=== PATIENT | male | born 1945 | race Caucasian/White ===

== ENCOUNTER 2021-11-14 07:34 | Inpatient (IN) | payer MEDICARE ==
[~2021-11-14] VITALS: Ht 177.8 cm; Wt 75.3 kg
--- NOTE | 2021-11-14 07:44 | NUR ---
To ER bed 1, c/o LLQ pain had hernia surgery yesterday 08/16 pain scale, aaox3, breathing even and non labored, connected to monitor, awaiting md estrada
--- NOTE | 2021-11-14 07:45 | NUR ---
DR HERRON AT BEDSIDE
[2021-11-14 08:06] LABS: BASOPHILS % (AUTO) 0.3 % (0.0-2.0); EOSINOPHILS % (AUTO) 0.4 % (0.0-6.0); HEMATOCRIT 44 % (39-51); HEMOGLOBIN 14.5 g/dL (13.5-17.5); LYMPHOCYTES # (AUTO) 0.7 K/uL (0.8-4.8); LYMPHOCYTES % (AUTO) 6.7 % (20.0-44.0); MEAN CORPUSCULAR HGB CONC 33 g/dl (31.0-36.0); MEAN CORPUSCULAR VOLUME 100 fL (80-96); MONOCYTES # (AUTO) 0.7 K/uL (0.1-1.30); MONOCYTES % (AUTO) 6.6 % (2.0-12.0); PLATELET COUNT (AUTO) 168 K/uL (150-450); RED BLOOD CELL COUNT(AUTO) 4.38 MIL/uL (4.5-6.0); WHITE BLOOD COUNT (AUTO) 10.4 K/uL (4.3-11.0)
[2021-11-14 08:19] LABS: CALCIUM, SERUM 8.9 mg/dL (8.5-10.1); POTASSIUM 4.3 mmol/L (3.5-5.1)
--- NOTE | 2021-11-14 08:22 | NUR ---
ABDOMINE PAIN 4/10
[2021-11-14 08:25] LABS: ALBUMIN 3.5 g/dL (3.4-5.0); BILIRUBIN,DIRECT 0.2 mg/dL (0.0-0.2); BILIRUBIN,TOTAL 1.1 mg/dL (0.2-1.0); TOTAL PROTEIN, SERUM 6.8 g/dL (6.4-8.2)
[2021-11-14] MEDS ORDERED: IV NS 0.9% 250 ML IV ONE (08:26)
[2021-11-14] MEDS ORDERED: IOHEXOL-300 100 ML VIAL IV ONE (08:26)
--- NOTE | 2021-11-14 09:19 | NUR ---
URINE COLLECTED AND SENT TO LAB
[2021-11-14 09:35] LABS: BILIRUBIN,URINE NEGATIVE (NEGATIVE); COLOR,URINE YELLOW (YELLOW); LEUKOCYTE ESTERASE ,URINE NEGATIVE (NEGATIVE); NITRITE, URINE NEGATIVE (NEGATIVE); PROTEIN,URINE NEGATIVE (NEGATIVE); UGLUCOSE NEGATIVE (NEGATIVE); UROBILINOGEN,URINE 0.2 EU/dL (0.2)
--- NOTE | 2021-11-14 09:43 | NUR ---
CALLED AND LEFT A VOICEMAIL TO DR. JENNIFER SARMIENTO. WAITING FOR RESPONSE.
--- NOTE | 2021-11-14 09:51 | NUR ---
PAGED DR. YOUNG PENNINGTON FOR A CONSULT. WAITING FOR RESPONSE.
--- NOTE | 2021-11-14 09:54 | NUR ---
DR. PENNINGTON ON THE PHONE WITH DR. HERRON.
[2021-11-14] MEDS ORDERED: PANT40TA49 PO (11:11)
[2021-11-14] MEDS ORDERED: TAMS-12 PO (11:11)
[2021-11-14] MEDS ORDERED: HYDR-3972 PO (11:11)
[2021-11-14] MEDS ORDERED: ROSU20TA32 PO (11:11)
[2021-11-14] MEDS ORDERED: LORA-258 PO (11:11)
--- NOTE | 2021-11-14 11:16 | NUR ---
RADIOLOGY REPORT STILL NOT IN. CALLED RADIOLOGY FOR A READ.
[2021-11-14] MEDS ORDERED: ONDANSETRON HCL/PF 4 MG/2 ML VIAL ONE (12:23)
[2021-11-14] MEDS ORDERED: MORPHINE SULFATE INJ 4 MG/ML DISP.SYRIN ONE (12:23)
--- NOTE | 2021-11-14 12:26 | NUR ---
CALLED ENMA SUTTON PAGERanulfo
[2021-11-14] MEDS ORDERED: MORPHINE SULFATE INJ 2 MG/ML DISP.SYRIN IV ONE (12:30)
[2021-11-14] MEDS ORDERED: ONDANSETRON HCL/PF - ER 4 MG/2 ML VIAL IV ONE (12:30)
--- NOTE | 2021-11-14 12:42 | NUR ---
MD TO MD IN PROGRESS.
--- NOTE | 2021-11-14 15:06 | NUR ---
REPORT GIVEN TO HIRAL RODRIGUEZ FOR NATALIO
[2021-11-14] MEDS ORDERED: MAG HYDROX/AL HYDROX/SIMETH 30 ML UDC PO PRN (15:30)
[2021-11-14] MEDS ORDERED: ACETAMINOPHEN 325 MG TABLET PO PRN (15:30)
[2021-11-14] MEDS ORDERED: MAGNESIUM HYDROXIDE 30 ML UDC PO PRN (15:30)
[2021-11-14] MEDS ORDERED: ONDANSETRON HCL/PF 4 MG/2 ML VIAL IVP PRN (15:30)
[2021-11-14] MEDS ORDERED: ZOLPIDEM TARTRATE 5 MG TABLET PO PRN (15:30)
[2021-11-14] MEDS ORDERED: MORPHINE SULFATE INJ 2 MG/ML DISP.SYRIN IV PRN (15:30)
[2021-11-14] MEDS ORDERED: Z GUARD REMEDY 4 OZ OINT TP PRN (15:30)
[2021-11-14 15:45] VITALS: BP 116/84
[2021-11-14 17:23] LABS: HEMOGLOBIN 15.1 g/dL (13.5-17.5)
--- NOTE | 2021-11-14 19:16 | NUR ---
RECEIVED PT FROM ER. ARRIVED TO ROOM VIA GURNEY. PT ORIENTED TO ROOM AND USE OF CALL LIGHT. POLICIES AND PROCEDURES EXPLAINED. PT VERBALIZED UNDERSTANDING. PT A/O X4. PT HAS IV ON LAC G#18. ASSESSMENT PERFORMED. SKIN INTACT. V/S: BP 116/84, WI 89, RR 20, T 97.8, SPO2 95%. WILL ENDORSE TO NEXT NURSE ON DUTY FOR CONTINUITY OF CARE.
--- NOTE | 2021-11-14 19:40 | NUR ---
MS RN OPENING NOTE PATIENT AWAKE IN BED, ALERT/ORIENTED X 4, PT ABLE TO MAKE NEEDS KNOWN. PT STABLE ON RA, NO S/S OF DISTRESS OR SOB NOTED, BREATHING EVEN AND UNLABORED. IV ACCESS ON LAC #18G INTACT AND SALINE LOCKED. PATIENT AMBULATORY & STEADY TO BATHROOM. SAFETY MEASURES IN PLACE: CALL LIGHT & TABLE WITHIN REACH, SIDE RAILS UP X 2, BED LOCKED IN LOWEST POSITION. WILL CONTINUE TO MONITOR PATIENT
[2021-11-14 20:00] VITALS: BP 102/65
[2021-11-14] MEDS: HYDROCODONE/APAP 10/325MG TABLET PO PRN (21:32)
[2021-11-14] MEDS ORDERED: TAMSULOSIN 0.4 MG CAP.SR.24H PO SCH (22:00)
[2021-11-14] MEDS ORDERED: ATORVASTATIN 40 MG TABLET PO SCH (22:00)
--- NOTE | 2021-11-15 00:22 | NUR ---
MS RN NOTE DR. PENNINGTON SAW PATIENT AT BEDSIDE, PER MD NO SURGICAL INTERVENTION AT THIS TIME. OKAY TO D/C IN AM
[2021-11-15 06:12] LABS: BASOPHILS % (AUTO) 0.2 % (0.0-2.0); EOSINOPHILS % (AUTO) 0.7 % (0.0-6.0); HEMATOCRIT 38 % (39-51); HEMOGLOBIN 13.1 g/dL (13.5-17.5); LYMPHOCYTES # (AUTO) 0.9 K/uL (0.8-4.8); LYMPHOCYTES % (AUTO) 10.2 % (20.0-44.0); MEAN CORPUSCULAR HGB CONC 34 g/dl (31.0-36.0); MEAN CORPUSCULAR VOLUME 100 fL (80-96); MONOCYTES # (AUTO) 1.1 K/uL (0.1-1.30); MONOCYTES % (AUTO) 12.8 % (2.0-12.0); NEUTROPHILS # (AUTO) 6.4 K/uL (1.8-8.9); NEUTROPHILS % (AUTO) 76.1 % (43.0-81.0); PLATELET COUNT (AUTO) 159 K/uL (150-450); RED BLOOD CELL COUNT(AUTO) 3.85 MIL/uL (4.5-6.0); WHITE BLOOD COUNT (AUTO) 8.4 K/uL (4.3-11.0)
--- NOTE | 2021-11-15 06:39 | NUR ---
MS RN CLOSING NOTE PATIENT SLEEPING IN BED, EASILY AWAKENED, ALERT/ORIENTED X 4, PT ABLE TO MAKE NEEDS KNOWN. PT STABLE ON RA, NO S/S OF DISTRESS OR SOB NOTED, BREATHING EVEN AND UNLABORED. MEDICATIONS GIVEN ORDERED, PT NEEDS MET THROUGHOUT SHIFT. PATIENT AMBULATORY & STEADY TO BATHROOM. SAFETY MEASURES IN PLACE: CALL LIGHT & TABLE WITHIN REACH, SIDE RAILS UP X 2, BED LOCKED IN LOWEST POSITION. WILL ENDORSE TO DAY SHIFT NURSE FOR CONTINUITY OF CARE
[2021-11-15 06:44] LABS: CALCIUM, SERUM 8.5 mg/dL (8.5-10.1); CREATININE 0.9 mg/dL (0.6-1.3); MAGNESIUM 2.3 mg/dL (1.8-2.4); PHOSPHORUS 3.1 mg/dL (2.5-4.9)
--- NOTE | 2021-11-15 07:30 | NUR ---
RN OPENING NOTES RECEIVED PATIENT IN BED. A/O X4. ON RA, NO S/SX OF DISTRESS OR SOB NOTED, BREATHING EVEN AND UNLABORED. NO COMPLAINT OF PAIN AT THIS TIME. ABDOMINAL DRESSING INTACT. SAFETY PRECAUTIONS IN PLACE. WILL CONTINUE TO MONITOR PATIENT.
[2021-11-15 08:00] VITALS: BP 112/64
[2021-11-15] MEDS ORDERED: LORAZEPAM 0.5 MG TABLET PO SCH (09:00)
[2021-11-15] MEDS ORDERED: PANTOPRAZOLE 40 MG TABLET.DR PO SCH (09:00)
[2021-11-15] MEDS: HYDROCODONE/APAP 10/325MG TABLET PO PRN (09:16)
--- NOTE | 2021-11-15 16:20 | NUR ---
UNDERGRADUATE ADVISOR NOTES PATIENT MEDICALLY STABLE FOR DISCHARGE. VSS. DISCHARGE INSTRUCTIONS PROVIDED AND PATIENT ABLE TO VERBALIZE UNDERSTANDING. EXIT CARE PACKET PROVIDED. IV ACCESS REMOVED AND ID BAND REMOVED. ALL BELONGINGS ACCOUNTED FOR AND DOCUMENTS SIGNED. PATIENT LEFT HOSPITAL IN PRIVATE CAR ACCOMPANIED BY GIRLFRIEND.
== END 2021-11-15 16:30 | disposition home or self-care (01) | DRG 920 ==
LOC: ER 07:44 → MED 15:12
PROVIDERS: ADMIT Student in an Organized Health Care Education/Training Program; ATTEND Student in an Organized Health Care Education/Training Program
DX: K91.870 Postprocedural hematoma of a digestive system organ or structure following a digestive system procedure (principal); E87.1 Hypo-osmolality and hyponatremia; Z20.822 Contact with and (suspected) exposure to COVID-19; E78.5 Hyperlipidemia, unspecified; N40.0 Benign prostatic hyperplasia without lower urinary tract symptoms; E78.00 Pure hypercholesterolemia, unspecified; Z79.899 Other long term (current) drug therapy; Y83.8 Other surgical procedures as the cause of abnormal reaction of the patient, or of later complication, without mention of misadventure at the time of the procedure; Y92.009 Unspecified place in unspecified non-institutional (private) residence as the place of occurrence of the external cause; K40.90 Unilateral inguinal hernia, without obstruction or gangrene, not specified as recurrent; K46.9 Unspecified abdominal hernia without obstruction or gangrene; Z98.890 Other specified postprocedural states
CPT/HCPCS: 36415; 80048-TC; 80076-TC; 83690-TC; 83735-TC; 84100-TC; 85025-TC; 85027-TC; 85730-TC; 87081-TC; C9803; G0378; J2270; J2405; J7050; Q9967